=== PATIENT | female | born 1980 | race Caucasian/White ===

== ENCOUNTER 2016-10-15 08:24 | Inpatient (IN) | payer OTHER ==
[2016-10-15 08:59] VITALS: BMI 32.0
[2016-10-15] MEDS ORDERED: OXYTOCIN IN LR 500 ML IV ONE (10:55)
[2016-10-15] MEDS ORDERED: LACTATED RINGERS 1,000 ML IV PRN (10:55)
[2016-10-15] MEDS ORDERED: OXYTOCIN 10 UNITS/ML VIAL ONE (10:58)
[2016-10-15] MEDS ORDERED: IV START KIT ONE (10:58)
[2016-10-15] MEDS ORDERED: MINERAL OIL 25 ML BOT ONE (10:58)
[2016-10-15] MEDS ORDERED: LIDOCAINE Viscous 2% 15 ML UDCUP ONE (10:59)
[2016-10-15] MEDS ORDERED: LIDOCAINE 1% (PRES FREE) 30 ML VIAL ONE (10:59)
[2016-10-15] MEDS ORDERED: PUMP TUBING ONE (10:59)
[2016-10-15] MEDS ORDERED: LACTATED RINGERS 1,000 ML IV SCH (11:00)
[2016-10-15] MEDS ORDERED: PENICILLIN G POTASSIUM 5 MMU VIAL ONE (11:00)
[2016-10-15] MEDS ORDERED: PENICILLIN G POTASSIUM 5 MMU in NS 0.9% (MINI-BAG PLUS) 100 ML IV ONE (11:00)
[2016-10-15] MEDS ORDERED: NS 0.9% (MINI-BAG PLUS) 50 ML IV ONE (11:01)
--- NOTE | 2016-10-15 11:42 | PCMAN ---
OB Admission Note - History : 3 Term: 1 : 0 Abortions (S&E): 1 Livin EDC:: 10/13/16 Gestational Age (weeks): 40 Days (#/7): 2 Admit Cervical Dilation:: 5 Admit Cervical Effacement (%):: 100 Admit Station:: -2 Membrane Status: Bulging Membranes Comment:: intact Labor Onset (Date): 10/15/16 Labor Onset (Time): 11:15 Contractions: Yes Contraction Frequency:: q 2-3 mins, lasting 60-90 sec Heart Rate:: 130 (moderate variability, pos accels, neg decels) Status:: Cat 1 EFW:: 7.5lbs Summary of Course:: HPI: Coral presented for triage at [facility] with spontaneous onset of contractions. She feels well, reports active fetus, denies LOF. Has had some pink tinge when she wipes. After 90 minutes in triage, she progressed from 4/90% /-2 to 5/100%/-2 with BBOW and was admitted for care in labor. Course: Coral initiated care at 10w1d with the midwives. Her dates were by sure LMP consistent with 15 week US. Initial BMI was 26.2 with TWG of 37lbs. She declined genetic testing. She declined the Tdap adn flu shot in . 20wk US WNL. was complicated by: pos UDS for THC at 10w1d. She continued to use marijuana throughout the . 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 at 40w at [facility] 2016 uncomplicated 10w SAB Hx abnormal pap 4 yrs ago with LEEP, normal Paps since 2013 Ovarian cyst surgical removal Med Hx: Hx meth use Bipolar disorder, Hx suicide attempts, stable this Migraines Anxiety Soc Hx: 1-2 cigarettes/day, quit with EtOH - 1-2 drinks/ day, quit with Marijuana use in Surg Hx: 2013 Ovarian cyst surgical removal - Labs Blood Type: O (+) positive Hct/Hgb:: 10.2 Rubella Status: Immune GBS Status: Positive Abnormal Labs: Other (pos UDS for THC at 10 weeks) - Review of Systems Complete ROS is negative except for abdominal pain described as contractions and thick vaginal mucous. - Physical Exam Psych/Mental Status: Mood/Affect Appropriate, Judgment/Insight Intact Neurological: Grossly Intact, Alert, Oriented x 4 HEENT: Atraumatic Lungs: Clear to Auscultation Bilaterally, Normal Air Movement Cardiovascular: Regular Rate and Rhythm, Normal S1, Normal S2 Genitourinary: Normal Female Genitalia Extremities: Full ROM Skin: Normal Color (Bhavesh's: back on right) - Problems (1) Active labor at term Status: Acute Code: [id number]/Plan: A: 36yo undelivered IUP at 40w2d Active labor GBS positive Membranes intact VSS Fetus Cat 1 P: Admit to FBC Place IV, initiate GBS prophylaxis per unit protocol IA per unit protocol Plans unmedicated labor, will use hydrotherapy, position changes, support from partner and daughter to manage labor intensity. Expectant management, anticipate Revaluate in 2-4 hours or as clinically indicated. (2) Group B streptococcal infection during Status: Acute Code: O98.819
[2016-10-15 12:14] LABS: HEMATOCRIT 37.8 % (37.0-47.0); HEMOGLOBIN 12.6 gm/l (12.0-16.0); MEAN CELL VOLUME 87.1 fl (81.0-99.0); MEAN CORPUSCULAR HGB CONC 33.3 g/dl (33.0-37.0); RED CELL DISTRIBUTION WIDTH 14.4 % (11.5-14.5)
[2016-10-15 12:32] LABS: AMPHETAMINES/METHAMPHETAMINES NEGATIVE (NEGATIVE); COCAINE NEGATIVE (NEGATIVE); MARIJUANA POSITIVE (NEGATIVE); METHADONE NEGATIVE (NEGATIVE); OPIATES NEGATIVE (NEGATIVE); TRICYCLIC ANTIDEPRESSANTS NEGATIVE (NEGATIVE)
--- NOTE | 2016-10-15 13:32 | PDOC36 ---
Provider Note Subject: Labor Progress Note Note: S: Coral reports occasional rectal pressure with contractions, but nothing "serious". She is ready to get in the tub. O: VS 121/62 P87 RR20 T97.5F FHR 135 regular rhythm, no decreases auscultated ctx q2-4 mins, lasting 60-80sec. Moderate to strong by palpation with adequate resting tone Membranes intact GBS pos, PCN x1 A: VSS Active Labor GBS pos, PCNx1 Membranes intact, afebrile Fetus reassurring per IA P: Continuee GBS prophylaxis per unit protocol Continue IA per unit protocol Plans unmedicated labor, will use hydrotherapy, position changes, support from partner and daughter to manage labor intensity. Expectant management, anticipate Revaluate in 2-4 hours or as clinically indicated.
[2016-10-15] MEDS ORDERED: PENICILLIN G 3 MIL UNIT PREMIX 3 MMU in Premix (D5W) 50 ml 1 EACH IV SCH (15:00)
[2016-10-15] MEDS ORDERED: PENICILLIN G 3 MIL UNIT PREMIX 50 ML IV ONE (15:16)
[2016-10-15] MEDS ORDERED: LIDOCAINE 1% (PRES FREE) 30 ML VIAL IF ONE (16:46)
[2016-10-15] MEDS ORDERED: LIDOCAINE Viscous 2% 15 ML UDCUP TP ONE (16:46)
[2016-10-15] MEDS ORDERED: ACETAMINOPHEN 325 MG TABLET PO PRN (17:44)
[2016-10-15] MEDS ORDERED: BENZOCAINE/MENTHOL 60 APPLIC/BOT TP PRN (17:44)
[2016-10-15] MEDS ORDERED: CALCIUM CARBONATE 500 MG TAB.CHEW PO PRN (17:44)
[2016-10-15] MEDS ORDERED: MAGNESIUM HYDROXIDE 30 ML UDCUP PO PRN (17:44)
[2016-10-15] MEDS ORDERED: LANOLIN 50 APPLIC/7G TUBE TP PRN (17:44)
--- NOTE | 2016-10-15 18:15 | PCMDEL ---
Delivery Note - Labor 1st stage (hr/min):: 4h 53 mins 2nd stage (hr/min):: 48mins 3rd stage (hr/min):: 11mins Total (hr/min):: 5hr 41 mins Pushed (hr/min):: 25mins - Delivery Delivery (Date): 10/15/16 Delivery (Time): 16:31 Infant Gender: Male Presentation: Cephalic Position: OA Umbilical Cord: 3 Vessel Delayed Cord Clamping:: > 3 min 1 Minute Total: 9 5 Minute Total: 9 Placenta:: Shultze, grossly intact, calcifications EBL:: 250mL Perineum:: 2nd degree perineal laceration, repaired with injectabel and gel 1% lidocaine Suture:: 3-0 chromic Anesthesia/Meds:: none Length ROM:: 13mins Comments:: First Stage: Coral was admitted in spontaneous labor at 5/100%/-1 and was supported by her , Saurabh, her 12 yo damikaeler, Imelda and other friends during her labor. She ambulated, changed position and found great relief in the tub. She made steady progress throughout the day. She had GBS positive status and was treated with two doses of PCN prophylaxis. Fetus remained reassuring per IA throughout first stage labor. Second Stage: Coral felt an urge to push while in the tub. She got out and labored standing at the side of the bed and was found to be complete with a BBOW. Coral tried the stool while awaiting a stronger urge to push. After about 20 minutes she moved to the bed and pushed on hands and knees for several contractions with good descent. SROM for clear fluid. FHTs were auscultated in the 110s with pushing and returned rapidly to basline after contractions. Then she moved to her left side and pushed well, bringing the head to the perineum. Controlled delivery of the head, OA, no nuchal cord. The anterior shoulder was palpated to be past the pubic bone and the infant restituted to LOP. With pressure behind the posterior shoulder to help rotate the body, the rest of the body delivered easily. Vigorous male infant was placed on the maternal abdomen, dried and stimulated, Apgars 9 & 9. Third Stage: Delayed cord clamping >3 mins. 3VC; cord blood obtained. With signs of spontaneous separation, gentle traction and the Palacios Wong maneuver delivered a large placenta in Schultze position. Ring forceps were used to extract the trailing membranes. Placenta was inspected and had grossly intact appearance with calcifications on about 1/3 of the maternal side. FUndus firm, below the U, midline. AMSTL was not initiated per maternal request. QBL 250mL. Vagina vault and perineum inspected and found to have a 2nd degree perineal laceration. This was numbed with lidocaine gel and then injectable lidocaine and then repaired with 3-0 chromic with good approximation and hemostasis. remained skin to skin and initiated within the first 30 minutes of life. Mother and baby in good condition and bonding well. Post delivery pause done.
[2016-10-15] MEDS: IBUPROFEN 800 MG TABLET PO SCH (18:19)
[2016-10-15] MEDS ORDERED: HYDROCODONE/ACETAMINOPHEN 5/325MG TABLET PO PRN (18:42)
[2016-10-16] MEDS: IBUPROFEN 800 MG TABLET PO SCH ×4 (00:14→21:06)
[2016-10-16] MEDS: OXYCODONE/ACETAMINOPHEN 5/325 MG TABLET PO PRN ×2 (07:01→21:06)
[2016-10-16] MEDS: DOCUSATE SODIUM 100 MG CAPSULE PO SCH (08:32)
--- NOTE | 2016-10-16 11:14 | PDOC44 ---
- Subjective Day: 1 Coral is up and walking around her room. She reports having a good night. Baby has been to the breast and attempted some sucks. Was seen by the provider this morning and baby will need to stay another night, although Coral had hoped to go home. They still need to collect a urine sample from baby and Coral needs to talk with case management re: her social situation. Lochia is light. Cramping is minimal and treated with good effect with Ibuprofen. Eating, drinking and voiding. Plan d/c home tomorrow. Reports Pain Tolerable, Reports , Reports Lochia Light, Reports Tolerating Regular Diet - Objective Temp Pulse Resp BP Pulse Ox 97.7 F 67 16 127/68 10/16/16 07:40 10/16/16 07:40 10/16/16 07:40 10/16/16 07:40 Lab Results 10/15/16 11:30 WBC 14.4 H RBC 4.34 Hgb 12.6 Hct 37.8 Plt Count 188 10/15/16 11:30 U Marijuana (THC) Screen Positive H Current Medications Generic Name Dose Route Start Last Admin Trade Name Freq PRN Reason Stop Dose Admin Acetaminophen 325 - 650 mg 10/15/16 17:44 Tylenol PO Q4H PRN Pain (Mild) Acetaminophen/Hydrocodone Bitart 1 tab 10/15/16 18:42 Sanford 5/325 PO Q4H PRN Pain Benzocaine/Menthol 1 applic 10/15/16 17:44 Dermoplast TP PRN PRN Patient Comfort Calcium Carbonate/Glycine 500 - 1,000 mg 10/15/16 17:44 Tums PO BID PRN Indigestion Docusate Sodium 100 mg 10/16/16 09:00 10/16/16 08:32 Colace PO 100 mg DAILY GARRETT Administration Emollient Ointment 1 applic 10/15/16 17:44 Gyw-Y-Cvrafo TP PRN PRN sore nipples Ibuprofen 800 mg 10/15/16 18:15 10/16/16 07:01 Motrin PO 800 mg Q6H GARRETT Administration Magnesium Hydroxide 30 ml 10/15/16 17:44 Milk Of Magnesia PO BEDTIME PRN Constipation Oxycodone/Acetaminophen 2 tab 10/15/16 18:41 10/16/16 07:01 Percocet 5/325 PO 1 tab Q6H PRN Administration Pain Sodium Chloride 10 ml 10/15/16 17:44 Normal Saline 10ml Flush IV PRN PRN IV Flush Sodium Chloride 10 ml 10/16/16 01:00 Normal Saline 10ml Flush IV Q8HR GARRETT - Physical Exam General: Afebrile Psych/Mental Status: Mood/Affect Appropriate Neurological: Grossly Intact, Alert Cardiovascular: Regular Rate and Rhythm Breast: Soft, Skin intact Fundus: Firm Genitourinary: Normal Female Genitalia Lochia: Light Rectal Exam: Deferred Extremities: Full ROM Skin: Normal Color, Warm, Dry - Problems:Assessment/Plan (1) Normal course Status: AcuteAssessment/Plan: A/ Day 1 s/p vaginal Breast feeding Positive marijuana on admit P/ Case management referral referral D/C Home tomorrow with baby Disposition: Anticipate DC Home Tomorrow
[2016-10-17] MEDS: IBUPROFEN 800 MG TABLET PO SCH (05:33)
[2016-10-17] MEDS: DOCUSATE SODIUM 100 MG CAPSULE PO SCH (09:31)
[2016-10-17 09:39] VITALS: BP 131/80
--- NOTE | 2016-10-17 12:32 | PDOC39B ---
Hospital Course: ADMIT DATE: 10/15/16 DISCHARGE DATE: 10/17/16 ADMISSION DIAGNOSES: Uterine contractions PROCEDURES: HISTORY OF PRESENT ILLNESS: 36 year old G3 T1 L1 at 40 weeks 2 days presenting with uterine contractions. Achieved an and has had a stable, uneventful course. HOSPITAL COURSE: By day of discharge the patient is ambulating, eating, voiding , and passing flatus without difficulty. Pain is controlled and lochia is appropriate. She is on her left breast and hand-expressing on her right while it heals (baby had a poor latch for a couple of feeds and it became very sore). She is undecided about method of control-may desire a BTL, otherwise is considering a LARC. Has good social support. Is going back to work in 6-wks and then her partner will have 2 weeks off. Has a breast pump at home. Encouraged to start pumping when her milk comes in so that she has a good frozen supply built up before she returns to work. - Physical Exam Vital Signs: Temp Pulse Resp BP Pulse Ox 98.1 F 78 16 131/80 10/17/16 08:45 10/17/16 08:45 10/17/16 08:45 10/17/16 08:45 Psych/Mental Status: Mood/Affect Appropriate, Judgment/Insight Intact, Bonding Well Lungs: Clear to Auscultation Bilaterally Cardiovascular: Regular Rate and Rhythm Breast: Soft, Skin intact, Erythema (On right nipple only, no blisters, lesions or bleedinbg), Nipples Intact Fundus: Firm, Midline, Below Umbilicus (2FB below) Genitourinary: Normal Female Genitalia (Sutures intact) Lochia: Light - Discharge Diagnosis (1) Normal course Status: AcuteAssessment/Plan: A: Day 2 s/p vaginal -right nipple healing Positive marijuana on admit Lochia stable P: Education: education handout given and reviewed. Discussed warning signs and when to call (bleeding, DVT/PE, infection, baby blues vs mood disorder). : on-demand feedings, continue hand expression and pumping until right nipple is healed, use lanolin and soothies PRN, [facility] PRN, start pumping once her milk comes in to have ready for when she returns to work Social: good support at home Rx: none needed Contraception: considering BTL vs LARC Follow-up: on 10/28/16 for 2-week visit or PRN - Discharge Plan Condition: Stable Disposition: Home Additional Instructions: You have a 2-week follow-up appointment with Laura Chaidez on at 1pm. If you have any questions or concerns, please call the clinic at [phone].
== END 2016-10-17 12:47 | disposition home or self-care (01) | DRG 775 ==
LOC: FBCOUT 08:24 → FBC 08:24 → FBCOUT 10:58 → FBC 10:58
PROVIDERS: ADMIT Advanced Practice Midwife; ATTEND Registered Nurse
PROC: 0KQM0ZZ Repair Perineum Muscle, Open Approach (ICD-10-PCS; principal; 2016-10-15)
PROC: 10E0XZZ Delivery of Products of Conception, External Approach (ICD-10-PCS; 2016-10-15)
DX: O70.1 Second degree perineal laceration during delivery (principal); Z37.0 Single live birth; O99.324 Drug use complicating childbirth; O99.824 Streptococcus B carrier state complicating childbirth; F12.21 Cannabis dependence, in remission; O99.344 Other mental disorders complicating childbirth; F31.9 Bipolar disorder, unspecified; F41.9 Anxiety disorder, unspecified; O99.334 Smoking (tobacco) complicating childbirth; F17.210 Nicotine dependence, cigarettes, uncomplicated; Z3A.40 40 weeks gestation of pregnancy